=== PATIENT | female | born 1995 | race Two or more races ===

== ENCOUNTER 2021-03-04 20:27 | Emergency (ER) | payer OTHER ==
[~2021-03-04] VITALS: Ht 165.1 cm; Wt 79.8 kg
[2021-03-05] MEDS ORDERED: ZYNCOF 20-400120 ML PO (02:46)
[2021-03-05] MEDS ORDERED: ALBUTEROL2.5 MG/3 M IH (02:46)
== END 2021-03-05 02:57 ==
LOC: ER 20:27
DX: R51.9 Headache, unspecified (principal)

== ENCOUNTER 2021-09-01 08:51 | Emergency (ER) | payer OTHER ==
[~2021-09-01] VITALS: Ht 165.1 cm; Wt 77.1 kg
[~2021-09-01 08:51] MED LIST: ALBUTEROL2.5 MG/3 M IH; ZYNCOF 20-400120 ML PO
[2021-09-01] MEDS ORDERED: VISTARIL25 MG PO (13:31)
== END 2021-09-01 13:40 | disposition home or self-care (01) ==
LOC: ER 08:51
DX: R00.2 Palpitations (principal); F06.4 Anxiety disorder due to known physiological condition

== ENCOUNTER → 2022-04-04 | Emergency (ER) | payer OTHER | END | disposition home or self-care (01) | LOC: ER 03:30 | DX: B34.9 Viral infection, unspecified (principal); Z20.822 Contact with and (suspected) exposure to COVID-19 ==